=== PATIENT | male | born 1955 | race Caucasian/White ===

== ENCOUNTER → 2019-11-17 | Outpatient (CLI) | payer MEDICARE | LOC: M.RAD 11:37 | PROVIDERS: ATTEND Internal Medicine | DX: J15.8 Pneumonia due to other specified bacteria (principal) ==

== ENCOUNTER 2020-06-29 07:30 | Emergency (ER) | payer OTHER, MEDICARE ==
[~2020-06-29] VITALS: Ht 185.4 cm; Wt 99.8 kg
[2020-06-29] MEDS ORDERED: TRAMADOL 50 MG50 MG PO (07:42)
[2020-06-29] MEDS ORDERED: ALLEGRA ALLERG180 MG PO (07:42)
[2020-06-29 09:15] VITALS: BP 132/88
== END 2020-06-29 09:16 | disposition home or self-care (01) ==
LOC: M.ERS 07:30
DX: S89.81XA Other specified injuries of right lower leg, initial encounter (principal); M25.461 Effusion, right knee; W18.39XA Other fall on same level, initial encounter; Y93.89 Activity, other specified; Y92.89 Other specified places as the place of occurrence of the external cause; Y99.8 Other external cause status

== ENCOUNTER → 2020-07-03 | Outpatient (CLI) | payer OTHER, MEDICARE ==
[~2020-07-03] MED LIST: ALLEGRA ALLERG180 MG PO; TRAMADOL 50 MG50 MG PO
== END ==
LOC: M.MRI 14:30
PROVIDERS: ATTEND Orthopaedic Surgery
DX: S83.271A Complex tear of lateral meniscus, current injury, right knee, initial encounter (principal); S83.511A Sprain of anterior cruciate ligament of right knee, initial encounter; M22.8X1 Other disorders of patella, right knee; S83.8X1A Sprain of other specified parts of right knee, initial encounter; M25.461 Effusion, right knee; M71.21 Synovial cyst of popliteal space [Baker], right knee; X58.XXXA Exposure to other specified factors, initial encounter; Y93.89 Activity, other specified; Y92.89 Other specified places as the place of occurrence of the external cause; Y99.8 Other external cause status

== ENCOUNTER → 2020-08-08 | Outpatient (CLI) | payer OTHER, MEDICARE ==
[2020-08-08 16:24] LABS: ABSOLUTE BASOPHILS 0.1 thou/uL (0.0-0.2); ABSOLUTE EOSINOPHILS 0.2 thou/uL (0.0-0.7); ABSOLUTE LYMPHOCYTES 2.6 thou/uL (0.8-5.3); ABSOLUTE MONOCYTES 0.7 thou/uL (0.0-1.2); ABSOLUTE NEUTROPHILS 6.4 thou/uL (1.6-8.1); BASOPHILS 0.6 %; EOSINOPHILS 2.1 %; HEMATOCRIT 43.5 % (42.0-52.0); HEMOGLOBIN 14.6 gm/dL (14.0-18.0); LYMPHOCYTES 25.8 %; MCH 28.8 pg (26.0-34.0); MCHC 33.5 g/dL (28.0-37.0); MCV 85.9 fL (80.0-100.0); MONOCYTES 6.7 %; MPV 7.1 fl. (7.2-11.1); NUCLEATED RBCS 0 /100WBC; PLATELET COUNT* 309 thou/uL (150-400); POLYS 64.8 %; RBC 5.06 mil/uL (4.50-6.00); RDW-CV 13.7 % (10.5-14.5); WBC 9.9 thou/uL (4.0-11.0)
[2020-08-08 16:33] LABS: PROTIME 10.7 Seconds (9.20-11.50)
[2020-08-08 16:35] LABS: ALBUMIN 3.8 g/dL (3.4-5.0); CALCIUM 9.8 mg/dL (8.5-10.1); CREATININE 1.2 mg/dL (0.6-1.3); POTASSIUM 5.2 mmol/L (3.5-5.1); TOTAL BILIRUBIN 0.7 mg/dL (<0.1-1.0); TOTAL PROTEIN 7.7 g/dL (6.4-8.2)
== END ==
LOC: M.LAB 16:06
PROVIDERS: ATTEND Internal Medicine
DX: D68.9 Coagulation defect, unspecified (principal); R58 Hemorrhage, not elsewhere classified; Z79.899 Other long term (current) drug therapy